=== PATIENT | female | born 1990 | race Caucasian/White ===

== ENCOUNTER 2016-11-28 07:12 | Emergency (ER) | payer OTHER ==
[~2016-11-28] VITALS: Ht 167.6 cm; Wt 91.2 kg
[~2016-11-28 07:12] MED LIST: DOXY1TAB3 PO; DOXY25TA38 PO; NITR100C62 PO; ONDA4TAB10 SL; PYRI25TA3 PO
[2016-11-28 07:18] VITALS: BP 120/56
[2016-11-28] MEDS ORDERED: CLIN150C14 PO (07:49)
--- NOTE | 2016-11-28 07:50 | PHYS DOC ---
Past Medical History Past Medical History: Other Additional Past Medical Histor: hep c Past Surgical History: Alcohol Use: None Drug Use: None Adult General Chief Complaint Chief Complaint: DENTAL PROBLEM HPI HPI Patient is a 26 year old female presents to the emergency department with a history of dental pain. Patient denies fever, chills, nausea or vomiting. Patient states she has taken Aleve and Tylenol #3 without relief. Patient states she has been told she needs a root canal. Patient states she has and appointment for Sunday. Review of Systems Review of Systems Constitutional: Denies fever or chills [] Eyes: Denies change in visual acuity, redness, or eye pain [] HENT: Denies nasal congestion or sore throat. Dental pain Respiratory: Denies cough or shortness of breath [] Cardiovascular: No additional information not addressed in HPI [] GI: Denies abdominal pain, nausea, vomiting, bloody stools or diarrhea [] : Denies dysuria or hematuria [] Musculoskeletal: Denies back pain or joint pain [] Integument: Denies rash or skin lesions [] Neurologic: Denies headache, focal weakness or sensory changes [] Endocrine: Denies polyuria or polydipsia [] Allergies Allergies Allergies Coded Allergies Type Severity Reaction Last Updated Verified Penicillins Allergy Intermediate 01/07/16 Yes Physical Exam Physical Exam Constitutional: Well developed, well nourished, no acute distress, non-toxic appearance. [] HENT: Normocephalic, atraumatic, bilateral external ears normal, oropharynx moist, no oral exudates, nose normal. Bilateral TM normal, patient with tenderness noted to the right front tooth. Slight redness noted, no drainage or discharge noted. Eyes: PERRLA, EOMI, conjunctiva normal, no discharge. [] Neck: Normal range of motion, no tenderness, supple, no stridor. [] Cardiovascular:Heart rate regular rhythm, no murmur [] Lungs & Thorax: Bilateral breath sounds clear to auscultation [] Skin: Warm, dry, no erythema, no rash. [] Back: No tenderness Extremities: No tenderness, no cyanosis, no clubbing, ROM intact, no edema. [] Neurologic: Alert and oriented X 3, normal motor function, normal sensory function, no focal deficits noted. [] Psychologic: Affect normal, judgement normal, mood normal. [] Current Patient Data Vital Signs Vital Signs Date Time Temp Pulse Resp B/P (MAP) Pulse Ox O2 Delivery O2 Flow Rate FiO2 11/28/16 07:18 97.6 76 18 97 Room Air 97.6 EKG EKG [] Radiology/Procedures Radiology/Procedures [] Course & Med Decision Making Course & Med Decision Making Pertinent Labs and Imaging studies reviewed. (See chart for details) Patient will be encouraged to use Tylenol or Ibuprofen for pain and discomfort. Patient will be placed on antibiotics with recommendations to keep her appointment for Sunday. Patient agrees with discharge instructions, treatment regimen and followup recommendations. Patient was provided with signs and symptoms to return to the emergency department. Patient agrees with discharge instructions treatment regimen and followup recommendations. [] Dragon Disclaimer Dragon Disclaimer This electronic medical record was generated, in whole or in part, using a voice recognition dictation system. Departure Departure Impression: Primary Impression: Pain, dental Disposition: HOME, SELF-CARE Condition: STABLE Referrals: OLIVE BARRIOS MD (PCP) Patient Instructions: Dental Pain, [id number] Additional Instructions: Tylenol or Ibuprofen for pain and discomfort Antibiotics as prescribed. Drink plenty of fluids Keep you followup appointment with your dentist for Sunday as you state you have an appointment Return to emergency department as needed for signs and symptoms that become worse. Scripts Clindamycin Hcl (CLINDAMYCIN HCL) 150 Mg Capsule 3 CAP PO TID for 10 Days, CAP Prov: ELHAM AYALA APRN 11/28/16 ELHAM AYALA APRN Nov 28, 2016 07:50
== END 2016-11-28 07:57 | disposition home or self-care (01) ==
LOC: ER 07:12
DX: K08.89 Other specified disorders of teeth and supporting structures (principal); Z86.19 Personal history of other infectious and parasitic diseases; Z88.0 Allergy status to penicillin
CPT/HCPCS: 99283

== ENCOUNTER 2016-12-18 11:42 | Emergency (ER) | payer OTHER ==
[~2016-12-18] VITALS: Ht 170.2 cm; Wt 92.1 kg
[~2016-12-18 11:42] MED LIST changes: +CLIN150C14 PO
[2016-12-18 12:20] VITALS: BP 117/56
--- NOTE | 2016-12-18 12:46 | PHYS DOC ---
Past Medical History Past Medical History: Anxiety, Bipolar, Depression, Other Additional Past Medical Histor: hep c Past Surgical History: , Tubal ligation Alcohol Use: None Drug Use: None Adult General Chief Complaint Chief Complaint: HIP PAIN HPI HPI Patient is a 26 year old female presents to the emergency department stating about a week ago she fell down some stairs at her dad's house when she was helping clean. She states that she's fell down approximately 4-5 steps on her right hip. She states that she slid down them. She states she's been taken ibuprofen for the pain and discomfort. She is also stating that she is having right ankle pain and discomfort that started last night. She denies any loss of bowel or bladder. She does have some bruising noted on her right hip area. She does state she has able to ambulate with no difficulty. Review of Systems Review of Systems Constitutional: Denies fever or chills [] Eyes: Denies change in visual acuity, redness, or eye pain [] HENT: Denies nasal congestion or sore throat [] Respiratory: Denies cough or shortness of breath [] Cardiovascular: No additional information not addressed in HPI [] GI: Denies abdominal pain, nausea, vomiting, bloody stools or diarrhea [] : Denies dysuria or hematuria [] Musculoskeletal: Denies back pain. Right hip pain and discomfort, right ankle pain Integument: Denies rash or skin lesions [] Neurologic: Denies headache, focal weakness or sensory changes [] Endocrine: Denies polyuria or polydipsia [] Allergies Allergies Allergies Coded Allergies Type Severity Reaction Last Updated Verified Penicillins Allergy Intermediate 01/07/16 Yes Physical Exam Physical Exam Constitutional: Well developed, well nourished, no acute distress, non-toxic appearance. [] HENT: Normocephalic, atraumatic, bilateral external ears normal, oropharynx moist, no oral exudates, nose normal. [] Eyes: PERRLA, EOMI, conjunctiva normal, no discharge. [] Neck: Normal range of motion, no tenderness, supple, no stridor. [] Cardiovascular:Heart rate regular rhythm Lungs & Thorax: No respiratory distress noted Skin: Warm, dry, no erythema, no rash. [] Back: No tenderness Extremities: Right hip tenderness, no cyanosis, no clubbing, ROM intact, no edema. Patient with bruising noted to the right hip area. Patient with no tenderness noted to the right ankle area peripheral pulses 2+ cap refill brisk less than 2 seconds. Patient able to ambulate with no difficulty. Neurologic: Alert and oriented X 3, normal motor function, normal sensory function, no focal deficits noted. [] Psychologic: Affect normal, judgement normal, mood normal. [] Current Patient Data Vital Signs Vital Signs Date Time Temp Pulse Resp B/P (MAP) Pulse Ox O2 Delivery O2 Flow Rate FiO2 12/18/16 12:20 98.5 69 16 96 Room Air 98.5 Lab Values Laboratory Tests Test 12/18/16 12:03 POC Urine HCG, Qualitative Hcg negative (Negative) EKG EKG [] Radiology/Procedures Radiology/Procedures [][place] [address] IMAGING REPORT Signed PATIENT: RAYMUNDO RAE ACCOUNT: [id number] : 1990 LOCATION: ER AGE: 26 SEX: F EXAM STATUS: REG ER ORD. PHYSICIAN: ELHAM AYALA APRN REASON: pain and discomfort after fall 2 days ago PROCEDURE: ANKLE RIGHT 3V Ankle plain films Indication: Pain and discomfort after fall 2 days ago Technique: 3 views of the right ankle Comparison: None Findings: No acute fracture or dislocation. No ankle joint effusion. Ankle mortise is within normal limits. No soft tissue abnormality Impression: No acute findings. DICTATED and SIGNED BY: NAREN BARCENAS DO DATE: 12/18/16 1337 CC: ELHAM AYALA APRN; NON,STAFF; HOLLY CHAVEZ PA-C ~ [address] [address] IMAGING REPORT Signed PATIENT: RAYMUNDO RAE ACCOUNT: [id number] : 1990 LOCATION: ER AGE: 26 SEX: F EXAM STATUS: REG ER ORD. PHYSICIAN: ELHAM AYALA APRN REASON: pain and discomfort after fall 2 days ago PROCEDURE: HIP RIGHT 2V WITH PELVIS Pelvis with right hip, 3 views, 12/18/2016: History: Pain and discomfort after a fall No fracture or dislocation is identified. The hip joints are well-maintained. IMPRESSION: No significant abnormality is detected. DICTATED and SIGNED BY: KATHERYN MUNROE MD DATE: 12/18/16 1348 CC: ELHAM AYALA APRN; NON,STAFF; HOLLY CHAVEZ PA-C ~ Course & Med Decision Making Course & Med Decision Making Pertinent Labs and Imaging studies reviewed. (See chart for details) X-rays were negative for any bony abnormalities per radiology. Patient will be discharged home in stable condition. Recommended Tylenol or ibuprofen for pain and discomfort as well as ice packs on 20 minutes off 20 minutes several times a day. Patient was provided with signs and symptoms to return back to emergency department. HIS concerns is answered for the patient at the bedside. Recommended that she follow-up with orthopedic in the next week if she still continues to have pain and discomfort. [] Dragon Disclaimer Dragon Disclaimer This electronic medical record was generated, in whole or in part, using a voice recognition dictation system. Departure Departure Impression: Primary Impression: Right hip pain Additional Impression: Right ankle pain Disposition: 01 HOME, SELF-CARE Condition: STABLE Referrals: HOLLY CHAVEZ PA-C (PCP) LEANNE HURLEY MD Patient Instructions: Ankle Pain, Hip Pain Additional Instructions: Your x-rays were negative for any bony abnormalities per radiology. Tylenol or ibuprofen for pain and discomfort. Ice packs on 20 minutes off 20 minutes several times today. Elevation as much as possible. Follow-up to primary care physician in the next week or follow up with an orthopedic. Return back to emergency prior signs symptoms of become worse. Problem Qualifiers Additional Impression: Right ankle pain Chronicity: acute Qualified Codes: M25.571 - Pain in right ankle and joints of right foot ELHAM AYALA APRN Dec 18, 2016 12:46
--- NOTE | 2016-12-18 13:41 | RAD ---
Ankle plain films Indication: Pain and discomfort after fall 2 days ago Technique: 3 views of the right ankle Comparison: None Findings: No acute fracture or dislocation. No ankle joint effusion. Ankle mortise is within normal limits. No soft tissue abnormality Impression: No acute findings.
--- NOTE | 2016-12-18 13:44 | RAD ---
Pelvis with right hip, 3 views, 12/18/2016: History: Pain and discomfort after a fall No fracture or dislocation is identified. The hip joints are well-maintained. IMPRESSION: No significant abnormality is detected.
== END 2016-12-18 14:08 | disposition home or self-care (01) ==
LOC: ER 11:42
DX: S70.01XA Contusion of right hip, initial encounter (principal); M25.571 Pain in right ankle and joints of right foot; F31.9 Bipolar disorder, unspecified; Z88.0 Allergy status to penicillin; Z98.51 Tubal ligation status; W10.9XXA Fall (on) (from) unspecified stairs and steps, initial encounter; Y93.89 Activity, other specified; Y99.8 Other external cause status; Y92.89 Other specified places as the place of occurrence of the external cause
CPT/HCPCS: 73502; 73610; 81025; 99284

== ENCOUNTER 2018-11-23 23:32 | Emergency (ER) | payer OTHER ==
[~2018-11-23 23:32] MED LIST changes: -DOXY25TA38 PO; +DOXY25TA49 PO
== END 2018-11-24 00:38 | disposition left against medical advice (07) ==
LOC: ER 23:32
DX: N93.9 Abnormal uterine and vaginal bleeding, unspecified (principal); Z53.21 Procedure and treatment not carried out due to patient leaving prior to being seen by health care provider

== ENCOUNTER 2019-01-06 19:14 | Emergency (ER) | payer SELFPAY ==
[~2019-01-06] VITALS: Ht 170.2 cm; Wt 86.2 kg
[2019-01-06 19:23] VITALS: BP 116/72
[2019-01-06] MEDS ORDERED: NAPROXEN 500 MG TABLET PO STA (19:54)
[2019-01-06] MEDS ORDERED: predniSONE 20 MG TABLET PO ONE (20:00)
[2019-01-06] MEDS ORDERED: HYDROcodone/APAP 5/325MG 1 TAB TABLET PO ONE (20:00)
[2019-01-06] MEDS ORDERED: CYCLOBENZAPRINE 10 MG TABLET. PO ONE (20:00)
[2019-01-06] MEDS ORDERED: ORPH100T PO (20:33)
[2019-01-06] MEDS ORDERED: DICL50TA2 PO (20:33)
[2019-01-06] MEDS ORDERED: METH4TAB2 PO (20:33)
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
== END 2019-01-06 20:56 | disposition home or self-care (01) ==
LOC: ER 19:14
DX: M25.522 Pain in left elbow (principal)
CPT/HCPCS: 29105; 99284

== ENCOUNTER 2019-06-22 13:08 | Emergency (ER) | payer MEDICAID ==
[~2019-06-22] VITALS: Ht 170.2 cm; Wt 92.2 kg
[~2019-06-22 13:08] MED LIST changes: +DICL50TA2 PO; +METH4TAB2 PO; +ORPH100T PO
[2019-06-22 13:32] VITALS: BP 155/84
--- NOTE | 2019-06-22 13:58 | PHYS DOC ---
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 Patient got a dog hair stuck in between her third and fourth finger about a week ago and went to [email or web address] and they removed the hair and put her on doxycycline. Patient states it has improved but is still painful and is pea-sized and reddened. She rates her pain a 7 out of 10. (ELHAM MARX APRN) Review of Systems Review of Systems Integument: Abscess between 3rd and 4th finger. Denies rash or skin lesions [] All other systems were reviewed and found to be within normal limits, except as documented in this note. (ELHAM MARX APRN) Current Medications Current Medications Current Medications Medications (Trade) Dose Ordered Sig/Hardeep Start Time Stop Time Status Last Admin Dose Admin Lidocaine HCl (Lidocaine 1% 20ml Vial) 20 ml 1X ONCE 06/22/19 14:00 06/22/19 14:01 DC 06/22/19 14:06 20 ML (ROX HWANG MD) Allergies Allergies Allergies Coded Allergies Type Severity Reaction Last Updated Verified Penicillins Allergy Intermediate 01/07/16 Yes azithromycin Allergy Unknown 01/06/19 Yes (ROX HWANG MD) Physical Exam Physical Exam Constitutional: Well developed, well nourished, no acute distress, non-toxic appearance. [] HENT: Normocephalic, atraumatic, bilateral external ears normal, oropharynx moist, no oral exudates, nose normal. [] Eyes: PERRLA, EOMI, conjunctiva normal, no discharge. [] Neck: Normal range of motion, no tenderness, supple, no stridor. [] Cardiovascular:Heart rate regular rhythm, no murmur [] Lungs & Thorax: Bilateral breath sounds clear to auscultation [] Abdomen: Bowel sounds normal, soft, no tenderness, no masses, no pulsatile masses. [] Skin: pea sized red abscess between 3rd and 4th finger. Warm, dry, no erythema, no rash. [] Back: No tenderness, no CVA tenderness. [] Extremities: No tenderness, no cyanosis, no clubbing, ROM intact, no edema. [] Neurologic: Alert and oriented X 3, normal motor function, normal sensory function, no focal deficits noted. [] Psychologic: Affect normal, judgement normal, mood normal. [] (ELHAM MARX APRN) Current Patient Data Vital Signs Vital Signs Date Time Temp Pulse Resp B/P (MAP) Pulse Ox O2 Delivery O2 Flow Rate FiO2 06/22/19 13:32 98.4 64 16 155/84 (107) 98 Room Air 98.4 (ROX HWANG MD) EKG EKG [] (ELHAM MARX APRN) Radiology/Procedures Radiology/Procedures [] (ELHAM MARX APRN) Course & Med Decision Making Course & Med Decision Making Pertinent Labs and Imaging studies reviewed. (See chart for details) Patient states this has been a problem for the last month and over the last couple of days it has become more painful. Patient states that she cannot see her doctor until later this week and was told to come to the emergency room if needed. The nodule is red, fluctuant and is pea-sized and is between the third and fourth finger. No red streaking or swelling to the hand. Radial pulses are present. Skin pink warm and dry. Cap refill less than 3 seconds. Patient denies any numbness or tingling. Patient has full function of her hand and can make a tight fist. Patient denies any weakness in her extremity. Patient placed on Keflex of which she states she has taken before in the past with no allergy. When a small puncture made in the area, only blood drained. Abscess Incision and Drainage with irrigation by me: Location: Between 3rd and 4th finger Anesthesia: Local 1% Lidocaine Technique: Irrigated. Disrupted loculations w/ instrumentation Packing: None Complications: Neurovascularly intact post procedure 48 hour wound check. Scar minimization instructions given. ED Ultrasound: Abscess localized by me using concurrent ultrasound guidance and assessment of the anatomy. Real time image archived in the medical record confirms anatomy. [] (ELHAM MARX APRN) Course & Med Decision Making Staff Physician Addendum: I was working in the ER during the course of this patient's visit. I was available for consultation as needed, but I was not directly involved in the care of this patient. (ROX HWANG MD) Dragon Disclaimer Dragon Disclaimer This electronic medical record was generated, in whole or in part, using a voice recognition dictation system. (ELHAM MARX APRN) Departure Departure Impression: Primary Impression: Abscess Disposition: HOME, SELF-CARE Condition: STABLE Referrals: NO PCP (PCP) Patient Instructions: Abscess, Abscess, Care After Additional Instructions: Follow up at [facility] this coming week. Take medication with food and as prescribed. Scripts Cephalexin (KEFLEX) 500 Mg Capsule 1 CAP PO BID for 7 Days, #14 CAP 0 Refills Prov: ELHAM MARX APRN 06/22/19 ELHAM MARX APRN Jun 22, 2019 13:58 ROX HWANG MD Jun 23, 2019 07:04
[2019-06-22] MEDS ORDERED: LIDOCAINE 1% Multi-Dose 20 ML VIAL. INJ ONE (14:00)
[2019-06-22] MEDS ORDERED: CEPH-264 PO (14:38)
== END 2019-06-22 15:00 | disposition home or self-care (01) ==
LOC: ER 13:08
DX: L02.512 Cutaneous abscess of left hand (principal); F17.200 Nicotine dependence, unspecified, uncomplicated; Z88.0 Allergy status to penicillin; Z88.1 Allergy status to other antibiotic agents
CPT/HCPCS: 10060; J3490; 99284-25

== ENCOUNTER 2019-12-30 23:32 | Emergency (ER) | payer MEDICAID ==
[~2019-12-30 23:32] MED LIST changes: +CEPH-264 PO; -PYRI25TA3 PO; +PYRI50TA6 PO
== END 2019-12-31 00:34 | disposition left against medical advice (07) ==
LOC: ER 23:32
DX: R10.9 Unspecified abdominal pain (principal); Z53.21 Procedure and treatment not carried out due to patient leaving prior to being seen by health care provider
CPT/HCPCS: 81025

== ENCOUNTER 2020-02-26 12:20 | Emergency (ER) | payer MEDICAID ==
[~2020-02-26] VITALS: Ht 170.2 cm; Wt 92.1 kg
[2020-02-26 12:24] VITALS: BP 147/72
[2020-02-26] MEDS ORDERED: CHLO15MO2 SWSP (12:47)
[2020-02-26] MEDS ORDERED: HYDR-2761 PO (12:47)
[2020-02-26] MEDS ORDERED: CLIN150C14 PO (12:47)
--- NOTE | 2020-02-26 12:47 | ED.ADGEN ---
Past Medical History Past Medical History: Other Additional Past Medical Histor: SVT,PANIC ATTACKS Past Surgical History: , Tubal ligation Smoking Status: Current Every Day Smoker Additional Information: 0.25 PPD Alcohol Use: None Drug Use: None General Adult EDM: Chief Complaint: DENTAL PROBLEM HPI: HPI: Patient is a 30 year old female who presents to the emergency department with complaints of right lower dental pain for the last 3 days. Patient reports she is to have her tooth removed on March [id number]. She denies any fever, sore throat, body aches, fatigue, cough, shortness of breath, nausea, vomiting, diarrhea, or abdominal pain. States that the pain does radiate to her right ear but denies any tinnitus or drainage from her ears. She currently rates her pain a 10 out of 10 on the pain scale. Patient states she has tried taking Tylenol, ibuprofen, and naproxen at home with no relief in her symptoms. Review of Systems: Review of Systems: Complete ROS is negative unless otherwise noted in HPI. Allergies: Allergies: Allergies Coded Allergies Type Severity Reaction Last Updated Verified Iodine and Iodide Containing Produc Allergy Intermediate Unknown 02/26/20 Yes Penicillins Allergy Intermediate 01/07/16 Yes amoxicillin Allergy Intermediate UNKNOWN 02/26/20 Yes azithromycin Allergy Intermediate 02/26/20 Yes morphine Allergy Intermediate UNKNOWN 02/26/20 Yes prednisone Allergy Intermediate UNKNOWN 02/26/20 Yes Physical Exam: PE: See Above Constitutional: Well developed, well nourished, no acute distress, non-toxic appearance. [] HENT: Normocephalic, atraumatic, bilateral external ears normal, bilateral TMs normal, nose normal; diffuse dental decay noted throughout patient's mouth, tooth #31 is noted to be severely decayed, with surrounding gingival erythema, no visible or palpable dental abscess. [] Eyes: PERRLA, EOMI, conjunctiva normal, no discharge. [] Neck: Normal range of motion, supple, no stridor. [] Cardiovascular:Heart rate regular rhythm Lungs & Thorax: Respirations even and unlabored, no retractions, no respiratory distress Skin: Warm, dry, no erythema, no rash. [] Extremities: No cyanosis, ROM intact, no edema. [] Neurologic: Alert and oriented X 3, no focal deficits noted. [] Psychologic: Affect normal, judgement normal, mood normal. [] Current Patient Data: Vital Signs: Vital Signs Date Time Temp Pulse Resp B/P (MAP) Pulse Ox O2 Delivery O2 Flow Rate FiO2 02/26/20 12:24 98.4 93 16 147/72 (97) 97 Room Air 98.4 EKG: EKG: [] Heart Score: Risk Factors: Risk Factors: DM, Current or recent (<one month) smoker, HTN, HLP, family history of CAD, obesity. Risk Scores: Score 0 - 3: 2.5% MACE over next 6 weeks - Discharge Home Score 4 - 6: 20.3% MACE over next 6 weeks - Admit for Clinical Observation Score 7 - 10: 72.7% MACE over next 6 weeks - Early Invasive Strategies Radiology/Procedures: Radiology/Procedures: [] Course & Med Decision Making: Course & Med Decision Making Pertinent Labs and Imaging studies reviewed. (See chart for details) 30-year-old female presented to the emergency room with complaints of dental pain for the last 3 days. Patient has an appointment on Sunday to have the tooth taken out. Advised patient I will prescribe 4 pain pills for her to take for severe pain only in addition to antibiotics and mouth rinse. Patient needs to follow-up with dentist as planned, return to the ER symptoms worsen. Patient verbalized an understanding of home care, medications, follow-up, and return to ED instructions and was in agreement with the plan of care. []I have reviewed the PA/AMMONIA PRINT OPERATOR's note and Plan of Care. I was available for consultation as needed during the patient's visit in the emergency department. I agree with the clinical impression, plans and disposition. Ana Disclaimer: Ana Disclaimer: This electronic medical record was generated, in whole or in part, using a voice recognition dictation system. Departure Departure Impression: Primary Impression: Dental decay Additional Impressions: Dentalgia Gingivitis Disposition: 01 DC HOME SELF CARE/HOMELESS Condition: STABLE Referrals: WILLI PEREZ MD (PCP) Patient Instructions: Dental Caries, Dental Pain, [id number], Gingivitis, [id number] Additional Instructions: Fill prescription(s) and use as directed. Follow up with dentist on Sunday as planned. Return to the ER if symptoms worsen. Scripts Clindamycin Hcl (CLINDAMYCIN HCL) 150 Mg Capsule 300 MG PO QID for 7 Days, #56 CAP 0 Refills Prov: PARK YIP APRN 02/26/20 Chlorhexidine Gluconate (PERIDEX) 15 Ml Mouthwash 15 ML SWSP BID for 7 Days, #473 ML 0 Refills [place] teeth before using to prevent staining. Swish for approximately 30 seconds before spitting. Prov: PARK YIP APRN 02/26/20 Hydrocodone Bit/Acetaminophen (HYDROCODONE-APAP 5-325 ) 1 Tab Tablet 0.5-1 TAB PO PRN Q6HRS PRN for SEVERE PAIN 7-10 for 1 Day, #4 TAB 0 Refills Prov: PARK YIP APRN 02/26/20 Problem Qualifiers PARK YIP APRN Feb 26, 2020 12:47 DHRUV POSEY MD Feb 26, 2020 13:01
== END 2020-02-26 13:00 | disposition home or self-care (01) ==
LOC: ER 12:20
DX: K02.9 Dental caries, unspecified (principal); K05.10 Chronic gingivitis, plaque induced; K08.89 Other specified disorders of teeth and supporting structures; F17.200 Nicotine dependence, unspecified, uncomplicated; Z98.890 Other specified postprocedural states; Z98.51 Tubal ligation status; Z91.040 Latex allergy status; Z88.0 Allergy status to penicillin; Z88.1 Allergy status to other antibiotic agents; Z88.6 Allergy status to analgesic agent; Z88.8 Allergy status to other drugs, medicaments and biological substances
CPT/HCPCS: 99283

== ENCOUNTER 2020-04-10 11:28 | Emergency (ER) | payer MEDICAID ==
[~2020-04-10] VITALS: Ht 170.2 cm; Wt 80.0 kg
[~2020-04-10 11:28] MED LIST changes: +CHLO15MO2 SWSP; +HYDR-2761 PO
[2020-04-10 11:40] VITALS: BP 115/64
== END 2020-04-10 12:13 | disposition left against medical advice (07) ==
LOC: ER 11:28
DX: R05 Cough (principal); Z53.21 Procedure and treatment not carried out due to patient leaving prior to being seen by health care provider

== ENCOUNTER 2020-04-18 21:43 | Emergency (ER) | payer MEDICAID ==
[~2020-04-18] VITALS: Ht 170.2 cm; Wt 87.3 kg
[2020-04-18 22:05] VITALS: BP 109/63
--- NOTE | 2020-04-18 22:42 | PHYS DOC ---
Past Medical History Past Medical History: Anxiety, Other Additional Past Medical Histor: SVT,PANIC ATTACKS Past Surgical History: , Tubal ligation Smoking Status: Former Smoker Alcohol Use: None Drug Use: None General Adult EDM: Chief Complaint: COUGH HPI: HPI: Patient is a 30 year old female who presented to ER for evaluation of nonproductive cough and trouble breathing for 2 weeks. Patient when the same [facility] had negative rapid Covid test on Sunday and negative PCR COVID TEST ALSO. She is a smoker, she came in today because she did not get any better. Patient denies any fever. Patient denies any chest pain. Patient denies any sore throat. Review of Systems: Review of Systems: Constitutional: Denies fever or chills. [] Eyes: Denies change in visual acuity. [] HENT: Denies nasal congestion or sore throat. [] Respiratory: Positive for cough and trouble breathing. Cardiovascular: Denies chest pain or edema. [] GI: Denies abdominal pain, nausea, vomiting, bloody stools or diarrhea. [] : Denies dysuria. [] Musculoskeletal: Denies back pain or joint pain. [] Integument: Denies rash. [] Neurologic: Denies headache, focal weakness or sensory changes. [] Endocrine: Denies polyuria or polydipsia. [] Lymphatic: Denies swollen glands. [] Psychiatric: Denies depression or anxiety. [] Heart Score: Risk Factors: Risk Factors: DM, Current or recent (<one month) smoker, HTN, HLP, family history of CAD, obesity. Risk Scores: Score 0 - 3: 2.5% MACE over next 6 weeks - Discharge Home Score 4 - 6: 20.3% MACE over next 6 weeks - Admit for Clinical Observation Score 7 - 10: 72.7% MACE over next 6 weeks - Early Invasive Strategies Allergies: Allergies: Allergies Coded Allergies Type Severity Reaction Last Updated Verified Iodine and Iodide Containing Produc Allergy Intermediate Unknown 02/26/20 Yes Penicillins Allergy Intermediate 01/07/16 Yes amoxicillin Allergy Intermediate UNKNOWN 02/26/20 Yes azithromycin Allergy Intermediate 02/26/20 Yes morphine Allergy Intermediate UNKNOWN 02/26/20 Yes Physical Exam: PE: Constitutional: Well developed, well nourished, no acute distress, non-toxic appearance. [] HENT: Normocephalic, atraumatic, bilateral external ears normal, oropharynx moist, no oral exudates, nose normal. [] Eyes: PERRLA, EOMI, conjunctiva normal, no discharge. [] Neck: Normal range of motion, no tenderness, supple, no stridor. [] Cardiovascular:Heart rate regular rhythm, no murmur [] Lungs & Thorax: Bilateral breath sounds clear to auscultation [] Abdomen: Bowel sounds normal, soft, no tenderness, no masses, no pulsatile masses. [] Skin: Warm, dry, no erythema, no rash. [] Back: No tenderness, no CVA tenderness. [] Extremities: No tenderness, no cyanosis, no clubbing, ROM intact, no edema. [] Neurologic: Alert and oriented X 3, normal motor function, normal sensory function, no focal deficits noted. [] Psychologic: Affect normal, judgement normal, mood normal. [] Current Patient Data: Vital Signs: Vital Signs Date Time Temp Pulse Resp B/P (MAP) Pulse Ox O2 Delivery O2 Flow Rate FiO2 04/18/20 22:05 98.2 95 20 109/63 (78) 99 Room Air 98.2 EKG: EKG: [] Radiology/Procedures: Radiology/Procedures: [][facility] [address] [place] [address] IMAGING REPORT Signed PATIENT: RAYMUNDO RAE ACCOUNT: [id number] : 1990 LOCATION: ER AGE: 30 SEX: F EXAM STATUS: DEP ER ORD. PHYSICIAN: DUTCH SEVERINO DO REASON: cough, soa PROCEDURE: CHEST AP ONLY Exam: Chest one view INDICATION: Cough TECHNIQUE: Frontal view of the chest Comparisons: None FINDINGS: The cardiomediastinal silhouette and pulmonary vessels are within normal limits. The lung and pleural spaces are clear. IMPRESSION: No acute cardiopulmonary process. Electronically signed by: Luis Inman MD (04/18/2020 10:57 PM) [facility] DICTATED and SIGNED BY: LUIS INMAN MD DATE: 04/18/20 [id number] 0 Course & Med Decision Making: Course & Med Decision Making Pertinent Labs and Imaging studies reviewed. (See chart for details) Patient was in stable condition, vital signs was normal, no respiratory distress. Chest x-ray did not show any acute problem. Patient will be discharged home. Ana Disclaimer: Ana Disclaimer: This electronic medical record was generated, in whole or in part, using a voice recognition dictation system. Departure Departure Impression: Primary Impression: Upper respiratory infection, viral Additional Impression: Person under investigation for COVID-19 Disposition: 01 DC HOME SELF CARE/HOMELESS Condition: STABLE Referrals: WILLI PEREZ MD (PCP) please follow up with your doctor as needed Patient Instructions: Upper Respiratory Infection, Adult Additional Instructions: You have been tested for or diagnosed with COVID-19. It is an infection caused by a new type of coronavirus. COVID-19 will cause cold-like or mild flu symptoms in most. It can cause more severe symptoms like problems breathing in some. There is no treatment for COVID-19. The body will clear the infection over time. Self-care will help to ease discomfort. Steps to Take: Self-Care Rest as needed. Healthy habits may help you feel better. Steps include: Choose healthy foods including fruits and vegetables. Drink water throughout the day. Get plenty of sleep each night. If you smoke, try to quit. It may ease breathing. Avoid alcohol. Keep Others Healthy The virus can spread to others. Droplets are released every time you sneeze or cough. The droplets can get into the mouth, nose, or eyes of people near you and lead to infection. To lower the chances of spreading COVID-19 to others: Stay at home until your doctor has said it is safe to leave. If you tested positive this will mean staying isolated until both of the following are true: At least 7 days have passed since the start of illness. You are free of fever for at least 72 hours without the use of medicine. During this time: - Avoid public areas, events, or transportation. Do not return to work or school until your doctor has said it is safe to do so. - Call ahead if you need to go to a medical center. Let them know you may have COVID-19. It will help them guide you where to go. They may also ask you to wear a facemask when you come to the office. - If you call for emergency medical services, let them know you may have COVID- 19. While at home: - Try to avoid close contact with others. Stay about 6 feet away. - If possible, spend most of your time in a separate room from others. - Use a face mask if you will be in close contact with others such as sharing a room or vehicle. - Have someone wipe down common surfaces in the home. Use household certified scrub tech every day on areas like doorknobs, counters, or sinks. - Cough or sneeze into a tissue. Throw the tissue away right after use. If a tissue is not available, cough or sneeze into your elbow. - Wash your hands often. Wash them after sneezing or coughing. Use soap and joselin er and wash for at least 20 seconds. Alcohol based hand power cleaner operator can be used if soap and water is not available. - Do not prepare food for others. Avoid sharing personal items like forks, spoons, or toothbrushes. - Avoid close contact with pets while you are sick. There is no evidence of the virus passing to pets. This is a safety step until more is known about this virus. Isolation can be frustrating. Social interaction can help. Keep in touch with friends and family through phone and tech options. You can still interact with others in your home, just keep a safe distance of about 6 feet. Follow-up: Your doctors office will check in with you to see if there are any changes in your health. You may be asked to keep track of symptoms to share with them. They will also let you know when you are clear to be in public again. Problems to Look Out For: Contact your doctor if your recovery is not going as you expect. Get emergency care if you have problems such as: - Trouble breathing - Nonstop chest pain or pressure - Changes in awareness, confusion, or problems waking - Lips or face have bluish color - Worsening of symptoms If you think you have an emergency, call for emergency medical services right away. As taken from [facility] [place] [facility] Burgess DO Apr 18, 2020 22:42
--- NOTE | 2020-04-18 22:59 | RAD ---
Exam: Chest one view INDICATION: Cough TECHNIQUE: Frontal view of the chest Comparisons: None FINDINGS: The cardiomediastinal silhouette and pulmonary vessels are within normal limits. The lung and pleural spaces are clear. IMPRESSION: No acute cardiopulmonary process. Electronically signed by: Luis Martinez MD (04/18/2020 10:57 PM) [facility]
--- NOTE | 2020-04-20 11:03 | NUR ---
IP: Informed pt of negative COVID test. Pt verbalized understanding.
== END 2020-04-18 22:56 | disposition home or self-care (01) ==
LOC: ER 21:43
DX: J06.9 Acute upper respiratory infection, unspecified (principal); Z20.828 Contact with and (suspected) exposure to other viral communicable diseases; Z87.891 Personal history of nicotine dependence; Z88.0 Allergy status to penicillin; Z88.1 Allergy status to other antibiotic agents; Z88.5 Allergy status to narcotic agent
CPT/HCPCS: 71045; 99284; C9803; U0003

== ENCOUNTER 2021-07-03 15:56 | Emergency (ER) | payer SELFPAY ==
[~2021-07-03] VITALS: Ht 170.2 cm; Wt 72.4 kg
[~2021-07-03 15:56] MED LIST changes: -CLIN150C14 PO; +CLIN150C16 PO
[2021-07-03 16:30] VITALS: BP 112/69
== END 2021-07-03 16:47 | disposition left against medical advice (07) ==
LOC: ER 15:56
DX: R51.9 Headache, unspecified (principal); Z53.21 Procedure and treatment not carried out due to patient leaving prior to being seen by health care provider